=== PATIENT | male | born 1990 | race Caucasian/White ===

== ENCOUNTER 2016-12-14 13:55 | Emergency (ER) | payer OTHER ==
[~2016-12-14] VITALS: Ht 182.9 cm; Wt 76.8 kg
[~2016-12-14 13:55] MED LIST: AMOXICILLIN875 MG PO; CLINDAMYCIN HC300 MG PO; MOTRIN800 MG PO; NOHOMEMEDS; PREDNISONE10 M1 PO; ROXICODONE5 MG PO; ULTRAM50 MG PO
[2016-12-14 13:56] VITALS: BP 125/71
[2016-12-14] MEDS ORDERED: MOTRIN800 MG PO (15:11)
[2016-12-14] MEDS ORDERED: NORCO 7.5/321 TABLET PO (15:11)
[2016-12-14] MEDS ORDERED: VALIUM5 MG PO (15:11)
== END 2016-12-14 15:36 | disposition home or self-care (01) ==
LOC: EME → EDBD 13:55 → EME 15:36
DX: S16.1XXA Strain of muscle, fascia and tendon at neck level, initial encounter (principal); V49.50XA Passenger injured in collision with unspecified motor vehicles in traffic accident, initial encounter; F17.200 Nicotine dependence, unspecified, uncomplicated
CPT/HCPCS: 72040; 99281; 99283

== ENCOUNTER 2017-01-30 16:10 | Emergency (ER) | payer OTHER ==
[~2017-01-30] VITALS: Ht 182.9 cm; Wt 74.0 kg
[~2017-01-30 16:10] MED LIST changes: +NORCO 7.5/321 TABLET PO; +VALIUM5 MG PO
[2017-01-30 16:54] LABS: BASOPHIL COUNT 0.1 K/uL (0-0.1); EOSINOPHIL (%) 0.1 % (0-5); HEMATOCRIT 38.5 % (38.0-50.0); IMMATURE GRANULOCYTE (%) 0.6 % (0.0-0.7); IMMATURE GRANULOCYTE COUNT 0.1 K/uL; INSTRUMENT ABS NEUTROPHIL CT 12.7 K/uL; LYMPHOCYTE COUNT 1.7 K/uL (1.0-2.8); MCH 29.7 PG (29.0-34.0); MCHC 33.5 G/DL (30.0-36.0); MCV 88.5 FL (86-99); MEAN PLAT.VOLUME 9.8 uM^3 (9.0-12.4); MONOCYTE COUNT 1.6 K/uL (0-0.8); NEUTROPHIL (%) 78.6 % (45-76); NEUTROPHIL COUNT 12.7 K/uL (1.8-6.4); PLATELET COUNT 413 K/uL (156-360); RBC DIS.WIDTH-CV 11.4 % (11.8-14.6); RBC DIS.WIDTH-SD 36.5 % (39-53); RED BLOOD COUNT 4.35 M/uL (4.00-5.50); WHITE BLOOD COUNT 16.1 K/uL (4.1-10.2)
[2017-01-30 17:07] LABS: CHLORIDE 98 mEq/L (99-109); POTASSIUM 4.4 mEq/L (3.7-5.4); SODIUM 132 mEq/L (136-147)
[2017-01-30 17:09] LABS: GLUCOSE 102 mg/dL (70-99)
[2017-01-30 17:10] LABS: ANION GAP 10 MEQ/L (2-14)
[2017-01-30 17:13] LABS: GFR ESTIMATE (CALCULATED) > 59 mL/min/
[2017-01-30 17:14] LABS: UREA NITROGEN (BUN) 14 mg/dL (9-23)
[2017-01-30 17:47] LABS: BILIRUBIN NEGATIVE; BLOOD NEGATIVE; COLOR AMBER ((YELLOW)); GLUCOSE (STRIP) NEGATIVE; KETONES NEGATIVE; LEUKOCYTES NEGATIVE; NITRITE NEGATIVE; PROTEIN (STRIP) 30; SPECIFIC GRAVITY 1.031 (1.000-1.030)
[2017-01-30 17:49] LABS: ADD MIUA? NO; UCUL ADDED? NO
[2017-01-30] MEDS ORDERED: DOXYCYCLINE MO100 MG PO (20:03)
[2017-01-30 20:25] VITALS: BP 104/67
== END 2017-01-30 19:29 | disposition home or self-care (01) ==
LOC: EME 16:10
PROC: 0H9EXZZ Drainage of Left Lower Arm Skin, External Approach (ICD-10-PCS; principal; 2017-01-30)
DX: L02.414 Cutaneous abscess of left upper limb (principal); L03.114 Cellulitis of left upper limb; F17.200 Nicotine dependence, unspecified, uncomplicated
CPT/HCPCS: 76881; 80048; 81003; 83605; 85025; 99281; 99284; J1885; J7050